=== PATIENT | female | born 1950 | race Hispanic/Latino ===

== ENCOUNTER 2017-04-18 03:17 | Outpatient (CLI) | payer MEDICARE | END 2017-04-18 03:18 | disposition home or self-care (01) | LOC: BICMRI 03:17 | PROVIDERS: ATTEND Psychiatry & Neurology Neurology | DX: G31.1 Senile degeneration of brain, not elsewhere classified (principal); Z90.710 Acquired absence of both cervix and uterus | CPT/HCPCS: 70551 ==

== ENCOUNTER 2018-07-06 11:22 | Outpatient (CLI) | payer MEDICARE ==
--- NOTE | 2018-07-06 13:39 | BD ---
Exam: DEXA Bone Density Comparison: 05-30-14 History: 68-year-old post-menopausal female for screening. Lumbar Spine: BMD (g/cm2) L1 0.747 T-Score: -2.2 L2 0.898 T-Score: -1.2 L3 0.888 T-Score: -1.8 L4 0.907 T-Score: -1.4 L1-L4 0.862 T-Score: -1.7 Femoral Neck: 0.599 T-Score: -2.2 Total Femur: 0.727 T-Score: -1.8 Impression: Osteopenia. This patient has a 10 year WHO fracture risk of a major osteoporotic fracture of 20% and hip fracture of 5.1%. When compared to the prior examination, the bone density in the hip is decrease d approximately 4% and the bone density in the spine is decreased approximately 3%. POS: [facility]
== END 2018-07-06 11:23 | disposition home or self-care (01) ==
LOC: BICMAMMO 11:22
PROVIDERS: ATTEND Family Medicine
DX: Z13.820 Encounter for screening for osteoporosis (principal); M85.89 Other specified disorders of bone density and structure, multiple sites
CPT/HCPCS: 77080